=== PATIENT | male | born 1990 | race Caucasian/White ===

== ENCOUNTER 2018-01-23 01:28 | Emergency (ER) | payer OTHER ==
[2018-01-23 01:34] VITALS: BP 119/79; PULSE 76; TEMP 97.9; BMI 33.6
[2018-01-23] MEDS ORDERED: DEXAMETHASONE SOD PHOSPHATE 10 MG/1 ML VIAL IM ONE (01:37)
--- NOTE | 2018-01-23 01:37 | PDOC ---
History of Present Illness - General Chief Complaint: Pain, Acute Stated Complaint: SEASONAL ALLERGIES/SORE THROAT Time Seen by Provider: 01/23/18 01:35 History Source: Patient Exam Limitations: No Limitations - History of Present Illness Initial Comments: 01/23/18 01:39 This is a 27-year-old male who comes in complaining of acute exacerbation of his seasonal ALLERGY symptoms. Patient said he took Claritin without relief he could be a focal taking Zyrtec and is complaining of an itchy sore throat and nasal congestion. Patient denies any fevers or chills. Patient denies any cough or shortness of breath. PAST MEDICAL HISTORY: no significant history PAST SURGICAL HISTORY: no significant history FAMILY HISTORY: no pertinant history SOCIAL HISTORY: Pt lives with family and is employed. MEDICATIONS: reviewed ALLERGIES: As per nursing notes Review of Systems General: No fevers or chills, no weakness, no weight loss HEENT: No change in vision. No sore throat,. No ear pain CardioVascular: No chest pain or shortness of breath Respiratory:No cough, or wheezing. Gastrointestinal: no nausea, vomitting, diarrhea or constipation, No rectal bleeding Genitourinary: No dysuria, hematuria, or frequency Musculoskeletal: No joint or muscle pain or swelling Neurologic: No headache, vertigo, dizziness or loss of consciousness Psychiatric: nor depression Skin: No rashes or easy bruising Endocrine: no increased thirst or abnormal weight change Allergic: no skin or latex allergy All other systems reviewed and normal Exam: General: Well-nourished well-developed individual, no acute distress HEENT: Throat: Normal, tonsils normal, there is some mild erythema of the posterior oropharynx has no exudate, , there is nasal condition she didn't with clear discharge Neck: Supple, no meningeal signs, no lymphadenopathy Eyes::Pupils equal reactive and round, extraocular motion intact Chest: Nontender to palpation Cardiac: S1-S2 normal, regular rate and rhythm, no murmurs rubs or gallops Respiratory: Lungs clear to auscultation bilateral Extremities: Warm, dry, no cyanosis, clubbing, or edema Skin: No rashes Neuro: Alert and oriented x3, CN II - XII intact, nonfocal exam with normal strength, normal sensation, normal reflexes, normal gait, Psych: Normal mood and affect Assessment and plan: This is a 27-year-old male with seasonal ALLERGIES. Patient was given a shot of Decadron and told to continue his Claritin and Zyrtec. Patient will follow-up with his primary care doctor as needed Past History - Past Medical History Allergies/Adverse Reactions: Allergies Allergy/AdvReac Type Severity Reaction Status Date / Time Penicillins Allergy Verified 01/23/18 01:29 Home Medications: Ambulatory Orders Cetirizine HCl [Zyrtec -] 10 mg PO DAILY 01/23/18 Loratadine [Claritin] 10 mg PO DAILY 01/23/18 COPD: No Other medical history: DENIES - Suicide/Smoking/Psychosocial Hx Smoking History: Never smoked Have you smoked in the past 12 months: No Information on smoking cessation initiated: No Hx Alcohol Use: Yes (SOCIAL) Drug/Substance Use Hx: No Substance Use Type: None *Physical Exam - Vital Signs Last Vital Signs Temp Pulse Resp BP Pulse Ox 97.9 F 76 16 119/79 100 01/23/18 01:31 01/23/18 01:31 01/23/18 01:31 01/23/18 01:31 01/23/18 01:31 *DC/Admit/Observation/Transfer Diagnosis at time of Disposition: Seasonal allergies Qualifiers: Allergic rhinitis trigger: pollen Qualified Code(s): J30.1 - Allergic rhinitis due to pollen - Discharge Dispostion Disposition: HOME Condition at time of disposition: Stable Decision to Admit order: No - Referrals - Patient Instructions Printed Discharge Instructions: Allergic Rhinitis Additional Instructions: Continue the Claritin as prescribed. If you have itchy eyes also can get some of the [id number] ALLERGY medication for I's and use as directed. Try to stay indoors is much as possible keep the windows closed. Return to the emergency department immediately with ANY new, persistent or worsening symptoms. Continue any medications as previously prescribed by your physician. You should follow up with your primary doctor as soon as possible regarding today's emergency department visit. . Please make sure your doctor reviews the results of your emergency evaluation. Thank you for coming to the Emergency Department today for your care. It was a pleasure to see you today. Please note that your evaluation is INCOMPLETE until you follow-up with your doctor. - Post Discharge Activity
[2018-01-23] MEDS ORDERED: DEXAMETHASONE SOD PHOSPHATE 10 MG/1 ML VIAL ONE (01:39)
== END 2018-01-23 01:45 | disposition home or self-care (01) ==
LOC: FER 01:28
PROC: 3E033GC Introduction of Other Therapeutic Substance into Peripheral Vein, Percutaneous Approach (ICD-10-PCS; principal; 2018-01-23)
DX: J30.1 Allergic rhinitis due to pollen (principal)
CPT/HCPCS: 99281-25; J1100